=== PATIENT | female | born 1985 | race Hispanic/Latino ===

== ENCOUNTER 2018-04-25 18:55 | Emergency (ER) | payer OTHER ==
[2018-04-25 19:10] VITALS: BP 137/83
--- NOTE | 2018-04-25 21:26 | ED GI/GU/ABDOMINAL COMPLAINT ---
History of Present Illness General Chief Complaint: Female Urogenital Problems Stated Complaint: "I HAVE A KNOT HANGING OUT OF MY VAGINA" Source: patient Exam Limitations: no limitations Vital Signs & Intake/Output Vital Signs & Intake/Output Vital Signs Date Time Temp Pulse Resp B/P B/P Pulse O2 O2 Flow FiO2 Mean Ox Delivery Rate 04/255 Room Air 04/25 1910 98.6 87 17 137/83 98 Room Air ED Intake and Output 04/26 0000 04/25 1200 Intake Total Output Total Balance Patient 120 lb Weight Weight Reported by Patient Measurement Method Allergies Coded Allergies: No Known Allergies (04/25/18) Reconcile Medications Doxycycline Hyclate 100 MG CAPSULE 1 CAP PO BID VAGINAL SWELLING Oxycodone HCl/Acetaminophen (Percocet 5-325 MG Tablet) 5 MG-325 MG TABLET 1-2 TAB PO BID PAIN Triage Note: PT WAS SHOWERING WHEN SHE NOTED A HARD LUMP OF TISSUE PROTRUDING OUT OF HER VAGINA. STATES HAD ABSCESS SURGERY ON HER VAGINA WHEN SHE WAS 14 WITH NO COMPLICATIONS. LAST INTERCOURSE 2 DAYS AGO, DENIES HX OF PROLAPSE. Triage Nurses Notes Reviewed? yes ? N Is pt currently ? No Onset: Abrupt Duration: day(s): (1), constant Timing: recent history No Modifying Factors: none HPI: 32-year-old female comes into the emergency room with complaints of pain to her vagina. Patient reports that she noticed today when she was in the shower when she went down out of the room is a full and she feels swelling and pain. She denies any vaginal discharge or urinary symptoms. She comes in seeking further evaluation. She had a abscess when she was younger and was concerned might be the same. (Sanket Juárez) Past History Travel History Traveled to [place] past 21 day No Medical History Any Pertinent Medical History? none Surgical History Surgical History: non-contributory Psychosocial History What is your primary language Senegalese Tobacco Use: Current Daily Use Daily Tobacco Use Amount/Type: => 5 Cigarettes daily Family History Hx Contributory? No (Sanket Juárez) Review of Systems Review of Systems Constitutional: Reports: no symptoms. EENTM: Reports: no symptoms. Respiratory: Reports: no symptoms. Cardiovascular: Reports: no symptoms. GI: Reports: no symptoms. Genitourinary: Reports: see HPI. Musculoskeletal: Reports: no symptoms. Skin: Reports: no symptoms. Neurological/Psychological: Reports: no symptoms. Hematologic/Endocrine: Reports: no symptoms. Immunologic/Allergic: Reports: no symptoms. All Other Systems: Reviewed and Negative (Sanket Juárez) Physical Exam Physical Exam General Appearance: well developed/nourished, alert, awake Head: atraumatic Eyes: Bilateral: normal appearance. Ears, Nose, Throat, Mouth: moist mucous membrane Neck: normal inspection Gastrointestinal: NO EXAMINED Pelvic: EXTERNAL INSPECTION REVEALS A NODULE LOCATED AT THE MEATUS OF THE VAGINA, THERE IS NO ERYTHEMA, NO DISCHARGE, NOT LOCATED OVER bARTHOLIN'S GLAND, NO FLUCTUANCE, FIRM, INTERNAL EXAM DOES NOT REVEAL FEEL THAT IT EXTENDS DEEPER Back: normal inspection Extremities: normal range of motion Neurologic/Psych: awake, alert, oriented x 3 Skin: intact Core Measures ACS in differential dx? No Sepsis Present: No Sepsis Focused Exam Completed? No (Snaket Juárez) Progress Differential Diagnosis: ABSCESS,CYSTOCELE Plan of Care: Orders Procedure Date/time Status URINE 04/25 2049 Complete URINALYSIS 04/25 2049 Complete Laboratory Tests 04/25/18 2111: Urine Color YEL, Urine Clarity CLEAR, Urine pH 6.0, Ur Specific [place] >= 1.030 , Urine Protein NEG, Urine Ketones NEG, Urine Nitrite NEG, Urine Bilirubin NEG, Urine Urobilinogen 1.0, Ur Leukocyte Esterase NEG, Ur Microscopic SEDIMENT EXAMINED, Urine RBC 3-5, Urine WBC RARE, Ur Epithelial Cells RARE, Urine Bacteria FEW H, Urine Mucus MOD H, Urine Hemoglobin MOD H, Urine Glucose NEG, Urine Test NEGATIVE Initial ED EKG: none Comments: 04/25/2018 10:40:31 PM I explained to the patient that due to the fact that I am uncertain as to what this nodule in swelling is I am hesitant to cut into it. She needs follow-up with it network architect and she was given a referral. She was started on doxycycline and given Percocet for pain. Patient was initially in agreement with this plan and fine with that. upon discharging the patient she eloped from the emergency room without her discharge forms. Family members were complaining that there was no it network architect here in the emergency room. They walked out of the ER. The nurse tried to persuade the patient to come back for discharge instructions but would not come back. (Sanket Juárez) Departure Departure Disposition: HOME OR SELF CARE Condition: Stable Clinical Impression Primary Impression: Nodule of vagina Referrals: Collins Day MD Patient Has No Primary Care Dr (PCP/Family) Additional Instructions: Take Percocet and doxycycline as prescribed. Follow-up with it network architect provided. Return if any concerns worsening symptoms. Please go over all results of today's visit with your primary care doctor. Contact your primary care doctor to let them know you were here in the emergency room. There may be nonspecific findings which may not be related to your visit today here in the emergency room but may require further evaluation and chronic monitoring by your primary care doctor. If you had a laceration today the chance of foreign body always remains. You should follow-up with your primary care doctor for recheck in 3-5 days for a wound check. If you had an x-ray done there is a chance that a fracture could have been missed on initial read and you should follow-up with your primary care doctor for repeat x-rays if symptoms persist. If your blood pressure was elevated here in the emergency room please have rechecked by aries primary care doctor within the next 48. If you were prescribed a narcotic here in the emergency room or any type of controlled substances you're not allowed to drive while taking this medication or operate any type of heavy machinery. Narcotics can make you feel lightheaded dizziness nausea and can cause constipation. You may need to cherry picker operator a stool softener. Thank you for choosing [facility] emergency room. Please return to the emergency room immediately if you have any other concerns worsening of symptoms. Departure Forms: Customer Survey General Discharge Information Prescriptions: Current Visit Scripts Oxycodone HCl/Acetaminophen (Percocet 5-325 MG Tablet) 1-2 TAB PO BID #15 TAB Doxycycline Hyclate 1 CAP PO BID #20 CAP (Sanket Juárez) PA/WELL POINT PUMPING SUPERVISOR Co-Sign Statement Statement: ED Attending supervision documentation- [] I saw and evaluated the patient. I have also reviewed all the pertinent lab results and diagnostic results. I agree with the findings and the plan of care as documented in the PA's/WELL POINT PUMPING SUPERVISOR's documentation. [x] I have reviewed the ED Record and agree with the PA's/WELL POINT PUMPING SUPERVISOR's documentation. [] Additions or exceptions (if any) to the PAs/WELL POINT PUMPING SUPERVISOR's note and plan are summarized below: [] (Rossi BECKER,Charlie Metz)
[2018-04-25] MEDS ORDERED: DOXYCYCLINE HY100 M2 PO (21:56)
[2018-04-25] MEDS ORDERED: PERCOCET 5-3251 EACH PO (21:56)
== END 2018-04-25 22:06 ==
LOC: ERH 18:55
DX: R22.9 Localized swelling, mass and lump, unspecified (principal); F17.210 Nicotine dependence, cigarettes, uncomplicated
CPT/HCPCS: 81001; 81025